=== PATIENT | male | born 1995 | race American Indian/Alaskan Native ===

== ENCOUNTER 2021-05-24 09:07 | Emergency (ER) | payer OTHER ==
--- NOTE | 2021-05-24 10:39 | Emergency Department Report ---
Chief Complaint: Extremity Injury, Lower Stated Complaint: RT LEG PAIN SWELLING Time Seen by Provider: 05/24/21 10:22 - HPI History of Present Illness: Patient is a 26-year-old male presents emergency room complaints of right hip pain and right knee pain for the last 3 months. He states he saw a primary care doctor and was advised he likely had arthritis. He has had no acute fall or injury. He denies any swelling of the leg, calf pain, numbness, weakness ambulating. No allergies to medicines. Vitals are normal On exam: No bony tenderness palpation of the right lower extremity, no edema, no erythema, no increased warmth, no ecchymosis, compartments are soft, full range of motion of the right lower extremity, no deformity, no obvious joint laxity, neurovascularly intact Patient is presenting for right hip and right knee pain for 3 months He has had no trauma He has no signs of cellulitis, septic joint, acute gout flare He is able to ambulate without difficulty There are no deformities of the joints Patient will be given outpatient referrals Given the appropriate resources Discussed strict return precautions Medical screen exam performed there is no threat to life or limb at this time - Exam Vital Signs: Vital Signs 05/24/21 09:12 Temperature 98.4 F Pulse Rate 64 Respiratory 16 Rate Blood Pressure 120/68 O2 Sat by Pulse 100 Oximetry MSE screening note: Focused history and physical exam performed. ED Disposition for MSE Clinical Impression: Right hip pain Right knee pain Qualifiers: Chronicity: acute Qualified Code(s): M25.561 - Pain in right knee Disposition: DC-01 TO HOME OR SELFCARE Is pt being admited?: No Does the pt Need Aspirin: No Condition: Stable Instructions: Musculoskeletal Pain Additional Instructions: May take Tylenol or ibuprofen as needed for pain. may use ice for 15 minutes at a time, rest, elevation of the leg. Follow-up with your primary care doctor. return to the emergency room for any new or worsening symptoms. Referrals: MONICA VELEZ MD [Staff Physician] - 3-5 Days [facility] [Provider Group] - 3-5 Days SARTHAK STEVENS MD [Staff Physician] - 3-5 Days [facility] [Provider Group] - 3-5 Days Time of Disposition: 10:37 Print Language: SYRIAC
[2021-05-24 11:06] VITALS: BP 118/80
== END 2021-05-24 11:06 | disposition home or self-care (01) ==
LOC: ED 09:07
DX: M25.561 Pain in right knee (principal); M25.551 Pain in right hip
CPT/HCPCS: 99282